=== PATIENT | female | born 1960 | race Caucasian/White ===

== ENCOUNTER 2017-04-08 06:08 | Observation (INO) | payer BC ==
[2017-04-08] MEDS ORDERED: diphenhydrAMINE 25 MG CAP PO ONE ×2 (06:15→06:42)
[2017-04-08] MEDS ORDERED: FAMOTIDINE 20 MG TAB PO ONE (06:15)
[2017-04-08] MEDS ORDERED: ASPIRIN EC 325 MG TAB PO ONE ×2 (06:15→06:43)
[2017-04-08] MEDS ORDERED: DIAZEPAM 5 MG TAB PO ONE (06:15)
[2017-04-08] MEDS ORDERED: NS 1,000 ML IV ONE (06:15)
--- NOTE | 2017-04-08 06:41 | CPEKG ---
Heart Rate: 90 RR Interval: 667 P-R Interval: 168 QRSD Interval: 72 QT Interval: 356 QTC Interval: 436 P [place]: 37 QRS [place]: 21 T Wave [place]: 33 EKG Severity - BORDERLINE ECG - EKG Impression: SINUS RHYTHM EKG Impression: CONSIDER ANTERIOR INFARCT Electronically Signed By: Michael Sauceda 08-Apr-2017 10:37:46
--- NOTE | 2017-04-08 06:41 | CPEKG ---
Heart Rate: 90 RR Interval: 667 P-R Interval: 168 QRSD Interval: 72 QT Interval: 356 QTC Interval: 436 P [place]: 37 QRS [place]: 21 T Wave [place]: 33 EKG Severity - BORDERLINE ECG - EKG Impression: SINUS RHYTHM EKG Impression: CONSIDER ANTERIOR INFARCT Electronically Signed By: Michael Sauceda 08-Apr-2017 10:37:46
[2017-04-08] MEDS ORDERED: FAMOTIDINE 20 MG TAB ONE (06:43)
[2017-04-08] MEDS ORDERED: DIAZEPAM 5 MG TAB ONE (06:43)
--- NOTE | 2017-04-08 06:46 | PDHPUP ---
History & Physical Update H&P update statement: This history and physical update is based on an assessment of the patient which was completed after admission or registration (within 24 hours), but prior to the surgery/procedure. H&P update: no change in patient's condition since H&P completed
--- NOTE | 2017-04-08 06:46 | PDPROPOC ---
Sedation Plan of Care Sedation Plan of Care: vital signs stable, mental status noted ASA Classification: ASA 2 Planned drugs: fentanyl, midazolam Mallampati Score: Class 2 Mallampati Reference Image: Patient passed 3-3-2 rule?: Yes
[2017-04-08] MEDS ORDERED: LIDOCAINE 1% 300 MG/30 ML SDV ONE (06:51)
[2017-04-08] MEDS ORDERED: MIDAZOLAM 2 MG/2 ML VIAL ONE ×2 (06:51→08:01)
[2017-04-08] MEDS ORDERED: fentaNYL 100 MCG/2 ML INJ ONE (06:51)
[2017-04-08] MEDS ORDERED: IOPAMIDOL (ISOVUE-370) 150 ML BTL IV ONE ×2 (06:51→07:38)
[2017-04-08 06:55] LABS: PLATELET COUNT 179 10^3/uL (150-400)
[2017-04-08 07:04] LABS: INR 1.01 (0.83-1.16); PROTIME(PATIENT) 13.2 SEC (12.0-15.0)
[2017-04-08] MEDS ORDERED: CLOPIDOGREL BISULFATE 75 MG TAB ONE (07:09)
[2017-04-08] MEDS ORDERED: CLOPIDOGREL BISULFATE 75 MG TAB PO ONE ×2 (07:15→08:19)
[2017-04-08] MEDS ORDERED: BIVALIRUDIN 250 MG/5 ML VIAL IV ONE (07:26)
[2017-04-08] MEDS ORDERED: HEPARIN 10,000 UNIT/10 ML MDV ONE (07:26)
[2017-04-08] MEDS ORDERED: NITROGLYCERIN 1,500 MCG/15 ML VIAL MISC ONE (07:56)
[2017-04-08] MEDS ORDERED: ONDANSETRON 4 MG/2 ML VIAL IVP PRN (08:19)
[2017-04-08] MEDS ORDERED: NITROGLYCERIN 0.4 MG BTL SL PRN (08:19)
[2017-04-08] MEDS ORDERED: HYDROCODONE/APAP 5/325 TAB PO PRN (08:19)
[2017-04-08] MEDS ORDERED: ATROPINE SULFATE 1 MG/10 ML SYR IVP PRN (08:19)
[2017-04-08] MEDS ORDERED: TEMAZEPAM 15 MG CAP PO PRN (08:19)
[2017-04-08] MEDS ORDERED: LORazepam 2 MG/ML INJ IVP PRN (08:19)
[2017-04-08] MEDS ORDERED: OXYCODONE/APAP 5/325 TAB PO PRN (08:19)
[2017-04-08] MEDS ORDERED: TETRAHYDROZOLINE 0.05% 15 ML OPHT.BTL EACHEYE PRN (08:24)
--- NOTE | 2017-04-08 08:51 | CPEKG ---
Heart Rate: 76 RR Interval: 789 P-R Interval: 160 QRSD Interval: 72 QT Interval: 400 QTC Interval: 450 P [place]: 18 QRS [place]: 27 T Wave [place]: 25 EKG Severity - ABNORMAL ECG - EKG Impression: SINUS RHYTHM EKG Impression: PROBABLE INFERIOR INFARCT, OLD Electronically Signed By: Michael Sauceda 08-Apr-2017 10:37:39
--- NOTE | 2017-04-08 08:51 | CPEKG ---
Heart Rate: 76 RR Interval: 789 P-R Interval: 160 QRSD Interval: 72 QT Interval: 400 QTC Interval: 450 P [place]: 18 QRS [place]: 27 T Wave [place]: 25 EKG Severity - ABNORMAL ECG - EKG Impression: SINUS RHYTHM EKG Impression: PROBABLE INFERIOR INFARCT, OLD Electronically Signed By: Michael Sauceda 08-Apr-2017 10:37:39
--- NOTE | 2017-04-08 09:08 | CPIP ---
[f rep st] INVASIVE CARDIAC PROCEDURE DATE OF PROCEDURE: 04/08/2017 INDICATION FOR PROCEDURE: Very positive stress test. History of coronary artery disease. PROCEDURE: 1. Left groin sheathogram. 2. Bilateral selective coronary angiography. 3. Left heart catheterization. 4. Left ventriculogram. 5. Percutaneous coronary intervention of mid LAD utilizing bare metal stent 3.0 x 24 mm for severe i n-stent restenosis. HISTORY: Briefly, this is a 57-year-old female with history of prior coronary artery disease with PC I for [place] in 2003. Patient has been having increasing palpitations, as well as right shoulder pain. The right shoulder pain was deemed to be secondary to rotator cuff tear, and she was actually schedul ed for rotator cuff surgery within the next few weeks. She did have an outpatient stress test, which was grossly positive for anterior wall ischemia. Given the grossly positive stress test results, th e patient was consented for left heart catheterization. DESCRIPTION OF PROCEDURE: After informed consent, patient was brought to [facility] where the left groin wa s prepped in sterile fashion. Using local lidocaine, a short 6-Latvian sheath was introduced into the left femoral artery, verified angiographically. The left groin was chosen secondary to the size of the pulse in the right groin was not as palpable or as strong as the left groin. Through the 6-Latvian sheath, a JL4 catheter was advanced to the left coronary artery. Images of the left coronary artery showed a short left main, left dominant circulation with normal left circumflex artery. The circumf celi gave off a marginal 1 proximally which was healthy and free of disease. There was a tiny ramus i ntermedius which was healthy and free of disease. The LPLS and LPDA appeared to be healthy and free of disease. The LAD was a long vessel which wraps around to the apex. The LAD gave off a medium to large diagonal proximally, which had multiple bifurcating branches; these were healthy and free of di sease. In the mid LAD, there was a prior stent that had been placed which has 80% proximal in-stent restenosis. Distally the vessel appeared to be healthy and free of disease. In the mid LAD prior to the stent placement, there was a 20% to 30% tubular disease. After images were obtained, the JL4 ca theter was withdrawn, and the JR4 catheter was advanced to the right coronary artery. Images of the r ight coronary artery revealed a nondominant right coronary artery. The catheter was then pulled back . A pigtail catheter was then advanced into the left ventricle. EDP is 20 mmHg. Left ventricular i mages in the HOBBS position showed EF of 65% with no wall motion abnormalities. There was no pull-back into the LV and the aorta. The patient had been administered 600 mg of Plavix prior to the case. A ngiomax bolus and drip were started. Due to the fact that the patient has high grade in-stent resten osis in the mid LAD which supplies a large amount of territory, and her stress test was grossly posit mady, we had discussed prior to the case about options during the case. The patient is adamant that s he does not want to put off her rotator cuff surgery and would like to have this done as soon as poss ible. We discussed placing a drug-coated stent prior to her case if needed, but however, patient cou ld not wait for a year, even 6 months, for Plavix use; hence, we decided that a bare metal stent if i t was a case of in-stent restenosis would be utilized, knowing full well that the longevity of a bare metal stent compared to a drug-coated stent is less than optimal, but this would reduce her Plavix u se to 1 month. We decided at this time that we would proceed with percutaneous intervention of the i n-stent restenosis of the LAD with the placement of a bare metal stent. An EBU 3.5 guide was advance d to left coronary artery. A Choice PT wire was placed down the LAD. Predilatation was with a 3.0 x 15 mm compliant balloon at 10 atmospheres. After this was performed, angiogram was obtained, which showed improved patency of this vessel. We then proceeded with stenting of this vessel with a REBEL 3.0 x 24 mm bare metal stent. This was deployed successfully at 14 atmospheres. This was then post- dilated with a 3.25 x 15 mm noncompliant balloon in the mid portion of the stented area at 14 atmosph eres. After this was performed, the patient was administered 400 mcg of nitroglycerin IC. Angiogram was obtained, which showed much improved patency of the stented region with no evidence of dissectio n or perforation. The wire was removed. The guide catheter was removed over the 3.5 wire. The left groin was closed with 6-Latvian AngioSeal. Patient tolerated the procedure well with no complication s. IMPRESSION: Successful percutaneous intervention of high-grade mid left anterior descending disease utilizing bare metal stenting for severe in-stent restenosis, secondary to patient's wishes of having surgery sooner than later. PLAN: The patient will be on aspirin and Plavix for 1 month's time. Will be discharged in the [facility]. Further orders following clinical course. /[id number]/MODL
--- NOTE | 2017-04-08 09:08 | CPIP ---
[f rep st] INVASIVE CARDIAC PROCEDURE DATE OF PROCEDURE: 04/08/2017 INDICATION FOR PROCEDURE: Very positive stress test. History of coronary artery disease. PROCEDURE: 1. Left groin sheathogram. 2. Bilateral selective coronary angiography. 3. Left heart catheterization. 4. Left ventriculogram. 5. Percutaneous coronary intervention of mid LAD utilizing bare metal stent 3.0 x 24 mm for severe i n-stent restenosis. HISTORY: Briefly, this is a 57-year-old female with history of prior coronary artery disease with PC I for [place] in 2003. Patient has been having increasing palpitations, as well as right shoulder pain. The right shoulder pain was deemed to be secondary to rotator cuff tear, and she was actually schedul ed for rotator cuff surgery within the next few weeks. She did have an outpatient stress test, which was grossly positive for anterior wall ischemia. Given the grossly positive stress test results, th e patient was consented for left heart catheterization. DESCRIPTION OF PROCEDURE: After informed consent, patient was brought to [facility] where the left groin wa s prepped in sterile fashion. Using local lidocaine, a short 6-Ukrainian sheath was introduced into the left femoral artery, verified angiographically. The left groin was chosen secondary to the size of the pulse in the right groin was not as palpable or as strong as the left groin. Through the 6-Ukrainian sheath, a JL4 catheter was advanced to the left coronary artery. Images of the left coronary artery showed a short left main, left dominant circulation with normal left circumflex artery. The circumf celi gave off a marginal 1 proximally which was healthy and free of disease. There was a tiny ramus i ntermedius which was healthy and free of disease. The LPLS and LPDA appeared to be healthy and free of disease. The LAD was a long vessel which wraps around to the apex. The LAD gave off a medium to large diagonal proximally, which had multiple bifurcating branches; these were healthy and free of di sease. In the mid LAD, there was a prior stent that had been placed which has 80% proximal in-stent restenosis. Distally the vessel appeared to be healthy and free of disease. In the mid LAD prior to the stent placement, there was a 20% to 30% tubular disease. After images were obtained, the JL4 ca theter was withdrawn, and the JR4 catheter was advanced to the right coronary artery. Images of the r ight coronary artery revealed a nondominant right coronary artery. The catheter was then pulled back . A pigtail catheter was then advanced into the left ventricle. EDP is 20 mmHg. Left ventricular i mages in the HOBBS position showed EF of 65% with no wall motion abnormalities. There was no pull-back into the LV and the aorta. The patient had been administered 600 mg of Plavix prior to the case. A ngiomax bolus and drip were started. Due to the fact that the patient has high grade in-stent resten osis in the mid LAD which supplies a large amount of territory, and her stress test was grossly posit mady, we had discussed prior to the case about options during the case. The patient is adamant that s he does not want to put off her rotator cuff surgery and would like to have this done as soon as poss ible. We discussed placing a drug-coated stent prior to her case if needed, but however, patient cou ld not wait for a year, even 6 months, for Plavix use; hence, we decided that a bare metal stent if i t was a case of in-stent restenosis would be utilized, knowing full well that the longevity of a bare metal stent compared to a drug-coated stent is less than optimal, but this would reduce her Plavix u se to 1 month. We decided at this time that we would proceed with percutaneous intervention of the i n-stent restenosis of the LAD with the placement of a bare metal stent. An EBU 3.5 guide was advance d to left coronary artery. A Choice PT wire was placed down the LAD. Predilatation was with a 3.0 x 15 mm compliant balloon at 10 atmospheres. After this was performed, angiogram was obtained, which showed improved patency of this vessel. We then proceeded with stenting of this vessel with a REBEL 3.0 x 24 mm bare metal stent. This was deployed successfully at 14 atmospheres. This was then post- dilated with a 3.25 x 15 mm noncompliant balloon in the mid portion of the stented area at 14 atmosph eres. After this was performed, the patient was administered 400 mcg of nitroglycerin IC. Angiogram was obtained, which showed much improved patency of the stented region with no evidence of dissectio n or perforation. The wire was removed. The guide catheter was removed over the 3.5 wire. The left groin was closed with 6-Uk[place] AngioSeal. Patient tolerated the procedure well with no complication s. IMPRESSION: Successful percutaneous intervention of high-grade mid left anterior descending disease utilizing bare metal stenting for severe in-stent restenosis, secondary to patient's wishes of having surgery sooner than later. PLAN: The patient will be on aspirin and Plavix for 1 month's time. Will be discharged in the [facility]. Further orders following clinical course. /[id number]/MODL
--- NOTE | 2017-04-08 09:08 | CPIP ---
[f rep st] INVASIVE CARDIAC PROCEDURE DATE OF PROCEDURE: 04/08/2017 INDICATION FOR PROCEDURE: Very positive stress test. History of coronary artery disease. PROCEDURE: 1. Left groin sheathogram. 2. Bilateral selective coronary angiography. 3. Left heart catheterization. 4. Left ventriculogram. 5. Percutaneous coronary intervention of mid LAD utilizing bare metal stent 3.0 x 24 mm for severe i n-stent restenosis. HISTORY: Briefly, this is a 57-year-old female with history of prior coronary artery disease with PC I for [place] in 2003. Patient has been having increasing palpitations, as well as right shoulder pain. The right shoulder pain was deemed to be secondary to rotator cuff tear, and she was actually schedul ed for rotator cuff surgery within the next few weeks. She did have an outpatient stress test, which was grossly positive for anterior wall ischemia. Given the grossly positive stress test results, th e patient was consented for left heart catheterization. DESCRIPTION OF PROCEDURE: After informed consent, patient was brought to [facility] where the left groin wa s prepped in sterile fashion. Using local lidocaine, a short 6-Serbian sheath was introduced into the left femoral artery, verified angiographically. The left groin was chosen secondary to the size of the pulse in the right groin was not as palpable or as strong as the left groin. Through the 6-Serbian sheath, a JL4 catheter was advanced to the left coronary artery. Images of the left coronary artery showed a short left main, left dominant circulation with normal left circumflex artery. The circumf celi gave off a marginal 1 proximally which was healthy and free of disease. There was a tiny ramus i ntermedius which was healthy and free of disease. The LPLS and LPDA appeared to be healthy and free of disease. The LAD was a long vessel which wraps around to the apex. The LAD gave off a medium to large diagonal proximally, which had multiple bifurcating branches; these were healthy and free of di sease. In the mid LAD, there was a prior stent that had been placed which has 80% proximal in-stent restenosis. Distally the vessel appeared to be healthy and free of disease. In the mid LAD prior to the stent placement, there was a 20% to 30% tubular disease. After images were obtained, the JL4 ca theter was withdrawn, and the JR4 catheter was advanced to the right coronary artery. Images of the r ight coronary artery revealed a nondominant right coronary artery. The catheter was then pulled back . A pigtail catheter was then advanced into the left ventricle. EDP is 20 mmHg. Left ventricular i mages in the HOBBS position showed EF of 65% with no wall motion abnormalities. There was no pull-back into the LV and the aorta. The patient had been administered 600 mg of Plavix prior to the case. A ngiomax bolus and drip were started. Due to the fact that the patient has high grade in-stent resten osis in the mid LAD which supplies a large amount of territory, and her stress test was grossly posit mady, we had discussed prior to the case about options during the case. The patient is adamant that s he does not want to put off her rotator cuff surgery and would like to have this done as soon as poss ible. We discussed placing a drug-coated stent prior to her case if needed, but however, patient cou ld not wait for a year, even 6 months, for Plavix use; hence, we decided that a bare metal stent if i t was a case of in-stent restenosis would be utilized, knowing full well that the longevity of a bare metal stent compared to a drug-coated stent is less than optimal, but this would reduce her Plavix u se to 1 month. We decided at this time that we would proceed with percutaneous intervention of the i n-stent restenosis of the LAD with the placement of a bare metal stent. An EBU 3.5 guide was advance d to left coronary artery. A Choice PT wire was placed down the LAD. Predilatation was with a 3.0 x 15 mm compliant balloon at 10 atmospheres. After this was performed, angiogram was obtained, which showed improved patency of this vessel. We then proceeded with stenting of this vessel with a REBEL 3.0 x 24 mm bare metal stent. This was deployed successfully at 14 atmospheres. This was then post- dilated with a 3.25 x 15 mm noncompliant balloon in the mid portion of the stented area at 14 atmosph eres. After this was performed, the patient was administered 400 mcg of nitroglycerin IC. Angiogram was obtained, which showed much improved patency of the stented region with no evidence of dissectio n or perforation. The wire was removed. The guide catheter was removed over the 3.5 wire. The left groin was closed with 6-Serbian AngioSeal. Patient tolerated the procedure well with no complication s. IMPRESSION: Successful percutaneous intervention of high-grade mid left anterior descending disease utilizing bare metal stenting for severe in-stent restenosis, secondary to patient's wishes of having surgery sooner than later. PLAN: The patient will be on aspirin and Plavix for 1 month's time. Will be discharged in the [facility]. Further orders following clinical course. /[id number]/MODL
[2017-04-09 04:25] VITALS: RESP 16
[2017-04-09 05:23] LABS: PLATELET COUNT 166 10^3/uL (150-400)
[2017-04-09] MEDS ORDERED: CLOPIDOGREL BISULFATE 75 MG TAB PO SCH (09:00)
[2017-04-09] MEDS ORDERED: ASPIRIN EC 325 MG TAB PO SCH (09:00)
[2017-04-09] MEDS ORDERED: ASPIRIN EC 81 MG TAB PO SCH (09:00)
[2017-04-09 12:02] VITALS: BP 115/74; PULSE 86; TEMP 97.9; O2SAT 94
--- NOTE | 2017-04-09 16:11 | ASDISCHSUM ---
Discharge Information Plan Status:Home with No Needs Medically Cleared to Leave:04/08/2017 Discharge Date:04/09/2017 01:08 PM CM D/C Disposition:Home, Routine, Self-Care ADT D/C Disposition:Home, Routine, Self-Care Projected Discharge Date:04/09/2017 01:08 PM Transportation at D/C:Family Discharge Delay Reason: Follow-Up Date:04/09/2017 01:08 PM Discharge Slot: Final Diagnosis: Placement Information Patient Contact Information Contact Name:YULIA Relationship:Friend Address: Work Phone: City: [facility] Phone: State/[employer] Code: Email: Financial Information Financial Class:HMO and PPO Plans Primary Plan Desc: OUT OF STATE PPO Primary Plan Number:[id number] Secondary Plan Desc: Secondary Plan Number: Assessment Information Intervention Information
--- NOTE | 2017-04-09 16:11 | ASDISCHSUM ---
Discharge Information Plan Status:Home with No Needs Medically Cleared to Leave:04/08/2017 Discharge Date:04/09/2017 01:08 PM CM D/C Disposition:Home, Routine, Self-Care ADT D/C Disposition:Home, Routine, Self-Care Projected Discharge Date:04/09/2017 01:08 PM Transportation at D/C:Family Discharge Delay Reason: Follow-Up Date:04/09/2017 01:08 PM Discharge Slot: Final Diagnosis: Placement Information Patient Contact Information Contact Name:YULIA Relationship:Friend Address: Work Phone: City: [facility] Phone: State/[place] Home Code: Email: Financial Information Financial Class:HMO and PPO Plans Primary Plan Desc: OUT OF STATE PPO Primary [place] Number:[id number] Secondary Plan Desc: Secondary Plan Number: Assessment Information Intervention Information
--- NOTE | 2017-04-09 16:11 | ASDISCHSUM ---
Discharge Information Plan Status:Home with No Needs Medically Cleared to Leave:04/08/2017 Discharge Date:04/09/2017 01:08 PM CM D/C Disposition:Home, Routine, Self-Care ADT D/C Disposition:Home, Routine, Self-Care Projected Discharge Date:04/09/2017 01:08 PM Transportation at D/C:Family Discharge Delay Reason: Follow-Up Date:04/09/2017 01:08 PM Discharge Slot: Final Diagnosis: Placement Information Patient Contact Information Contact Name:YULIA Relationship:Friend Address: Work Phone: City: [facility] Phone: State/[employer] Code: Email: Financial Information Financial Class:HMO and PPO Plans Primary Plan Desc: OUT OF STATE PPO Primary Plan Number:[id number] Secondary Plan Desc: Secondary Plan Number: Assessment Information Intervention Information
--- NOTE | 2017-04-11 03:09 | GDS ---
[f rep st] DISCHARGE SUMMARY ADMITTING DIAGNOSES: 1. Coronary artery disease with previous percutaneous coronary intervention and myocardial infarction in 2003. 2. Planned cardiac angiogram due to grossly positive anterior ischemia seen on outpatient stress test. DISCHARGE DIAGNOSES: 1. Coronary artery disease. 2. Status post bare-metal stent placement to the mid left anterior descending for severe in-stent restenosis. 3. Elevated blood sugar. HISTORY AND COURSE OF HOSPITALIZATION: This is a 57-year-old female with history of coronary artery disease with PCI after an LA in 2003. She is to have right shoulder surgery in the next month. She was having increasing palpitations along with right shoulder pain. The right shoulder pain was related to a rotator cuff tear and scheduled for rotator cuff surgery in the next few weeks. It was recommended that she have a cardiac angiogram due to the positive stress results and prior to having upcoming surgery. She was in agreement with this plan. She was taken to the cardiac botany laboratory assistant by Dr. Juno Huddleston, where he found the LAD as a long vessel wrapping around apex. The LAD gave off a medium to large diagonal proximally which had multiple bifurcating branching. These were healthy and free of disease. In the mid LAD, there was a prior stent that had been placed, which had 80% proximal in-stent restenosis. In the mid LAD prior to the stent placement, there was a 20% to 30% tubular disease. Dr. Huddleston discussed with her prior to the procedure that due to the fact that there was a high-grade in-stent restenosis in the mid LAD supplying a large amount of territory, and the stress test being grossly positive, the discussion of the benefits of placing a drug-coated stent versus a bare-metal stent was reviewed at length. She was very adamant that she did not want to put off her rotator cuff surgery and wanted this done as soon as possible. She agreed to placing the bare-metal stent, understanding the bare-metal stent was more prone to in-stent restenosis, in contrast to placing a drug-coated stent, which was less prone to the in-stent restenosis. She did not want to wait to have the shoulder surgery knowing the possibility of early in-stent restenosis utilizing the bare-metal stent. With this clearly discussed and with her understanding, it was agreed to place the bare-metal stent, which requires 4 weeks of Plavix anti-platelet therapy, as opposed to 6-9 months of Plavix with a drug-eluting stent. Successful percutaneous coronary intervention of high-grade mid left anterior descending disease utilizing bare-metal stent for severe in-stent restenosis secondary to patient's wishes of having surgery sooner than later. She is to be on Plavix for 1 month's time, along with aspirin 81 mg. Today, she is up in her room with no complaints. Left groin site is intact with no bleeding, induration, tenderness at the insertion site. She has been up ambulating with no chest pain, shortness of breath, or groin site problems. She was found to have elevated blood sugar of 216 with a hemoglobin A1c of 8.9. Dietary was requested to see her prior to discharge. She will be referred to her PCP as soon as possible for glucose testing monitoring and management. She has not been on a statin and this will be further discussed with Dr. Huddleston at her upcoming appointment. At this time, she currently is stable for discharge. ALLERGIES: She has no known allergies. MEDICATIONS: She will be discharged on Plavix 75 mg daily for 1 month, aspirin enteric-coated 81 mg daily for 1 month. Motrin has been discontinued. Herbal supplements 1 daily, multivitamin 1 daily, Visine 1 drop each eye daily, Charenton 5 /325 mg 1 tablet at bedtime as needed (this is a resumed medication). PHYSICAL EXAMINATION: On day of discharge. VITAL SIGNS: Blood pressure 115/74 , heart rate 86 and regular, oxygen saturation 94%, temperature 36.6. HEART: Rate was regular. No murmurs, rubs, gallops. LUNGS: Sounds are clear to auscultation. No wheezes, rales or rhonchi. EXTREMITIES: Left groin site is intact with no bleeding, induration, or tenderness. Bilateral peripheral pulses are 2+ with no edema. DIAGNOSTIC DATA: EKG showed normal sinus rhythm. Lipids: Total cholesterol 175, triglycerides 187, HDL 48, LDL 90. LDL goal with coronary artery disease 70 or less. Initiation of statin therapy will be discussed with Dr. Huddleston for appropriate agent. Glucose 219 on 04/08; 216 on 04/09. Hemoglobin A1c 8.9. Estimated average glucose 209. Referral to PCP for management. DISCHARGE PLAN: 1. She will follow up with Dr. Huddleston in 1 week. 2. Will benefit from statin medication and will discuss with Dr. Huddleston for appropriate agent. 3. Left groin site precautions were discussed with her and written instructions were provided. Reminder: No heavy lifting, pushing, pulling greater than 10 pounds for 1 week. No sitting in a tub of water for 1 week. 4. Groin site care: Clean with soap and water. Leave open to the air. 5. Should groin site bleed, hold firm pressure to site and go to the nearest emergency room. At this time, she currently is stable for discharge. /[id number]/MODL MTDD
== END 2017-04-09 13:08 | disposition home or self-care (01) ==
LOC: FCATH 06:08 → F2W 08:21
PROVIDERS: ADMIT Internal Medicine Cardiovascular Disease; ATTEND Internal Medicine Cardiovascular Disease
DX: I25.10 Atherosclerotic heart disease of native coronary artery without angina pectoris (principal); R73.9 Hyperglycemia, unspecified; R00.2 Palpitations
CPT/HCPCS: 92928; 93005; 93458; C1725; C1769; C1887; G0378; C1760; C1876; J0583; J1644; J2250; J3010; Q9967